=== PATIENT | female | born 1980 | race Caucasian/White ===

== ENCOUNTER 2017-10-22 19:09 | Emergency (ER) | payer OTHER ==
--- NOTE | 2017-10-22 19:15 | EDPHY ---
H & P Time Seen by Provider: 10/22/17 19:15 HPI/ROS: Chief Complaint: Left index finger injury HPI: The patient presents to the ED with complaints of left index finger pain and swelling after she accidentally slammed her finger in between 2 containers of work. The patient complains of associated mild ecchymosis and soft tissue swelling. She has mild pain with palpation and movement. REVIEW OF SYSTEMS: Neuro: no headache, numbness, weakness Musculoskeletal: As above Skin: As above Source: Patient Exam Limitations: No limitations - Medical/Surgical History Other PMH: Past medical history: Noncontributory - Physical Exam Exam: General: No acute distress Left hand: Tenderness, ecchymosis noted along the left index finger, no palpable deformity Neuro: Sensation intact to light touch Vascular: Normal capillary refill Constitutional: Initial Vital Signs Temperature (C) 36.4 C 10/22/17 19:15 Heart Rate 87 10/22/17 19:15 Respiratory Rate 16 10/22/17 19:15 Blood Pressure 162/104 H 10/22/17 19:15 O2 Sat (%) 97 10/22/17 19:15 O2 Delivery Mode Room Air Allergies/Adverse Reactions: No Known Allergies Allergy (Unverified 10/22/17 19:19) Medical Decision Making - Diagnostics Imaging Results: Left hand x-ray: Images reviewed by myself, negative for acute fracture. ED Course/Re-evaluation: The patient presents to the emergency department with left finger injury which occurred at work. She had tenderness and swelling noted to her left index finger. An x-ray of the digit demonstrates no obvious fracture by my interpretation. The patient will be advised to use Tylenol and ibuprofen as needed for pain. Ice as needed for swelling. Differential Diagnosis: Differential diagnosis considered includes fracture, sprain, dislocation Departure - Departure Disposition: Home, Routine, Self-Care Clinical Impression: Sprain of left index finger Condition: Good Instructions: Musculoskeletal Pain (ED) Additional Instructions: 1. Take Ibuprofen or Motrin 600 mg by mouth three times a day. 2. Your x-ray demonstrates no evidence of an obvious fracture. 3. Ice as directed. Referrals: EDWARD CLAROS [Other] - As per Instructions
[2017-10-22 19:19] VITALS: RESP 16
[2017-10-22] MEDS ORDERED: TDAP ADULT 0.5 ML INJ (BOOSTRIX) IM ONE (19:46)
[2017-10-22 19:47] VITALS: BP 151/93; PULSE 89; TEMP 98.2; O2SAT 98
== END 2017-10-22 19:52 | disposition home or self-care (01) ==
DX: S63.611A Unspecified sprain of left index finger, initial encounter (principal); W23.1XXA Caught, crushed, jammed, or pinched between stationary objects, initial encounter; Y92.69 Other specified industrial and construction area as the place of occurrence of the external cause; Y99.8 Other external cause status; Y93.89 Activity, other specified